=== PATIENT | male | born 1970 | race Caucasian/White ===

== ENCOUNTER 2017-06-08 19:21 | Emergency (ER) | payer BC ==
[~2017-06-08] VITALS: Ht 177.8 cm; Wt 120.7 kg
[2017-06-08 19:22] VITALS: BP 153/96
== END 2017-06-08 19:38 | disposition home or self-care (01) ==
LOC: ED 19:32
DX: G89.29 Other chronic pain (principal); M54.5 Low back pain; M54.6 Pain in thoracic spine; Z76.0 Encounter for issue of repeat prescription
CPT/HCPCS: 99283